=== PATIENT | female | born 1990 | race African-American/Black ===

== ENCOUNTER 2016-08-27 09:29 | Emergency (ER) | payer MEDICAID ==
[2016-08-27 09:35] VITALS: BP 122/77
--- NOTE | 2016-08-27 10:52 | ER Document Report ---
ED General - General Chief Complaint: Breathing Difficulty Stated Complaint: CHEST PAIN Notes: Patient says that she's been experiencing "tight chest pains" in the mid front of her chest since Wednesday night. She says it seems to be primarily at nighttime when she is laying down and going to bed. 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 Does not note any significant swelling of the lower legs are pains and has never had any blood clots in her legs. She's not had a significant cough or cold or chest congestion. Periodically she feels some shortness of breath. Says she is under some stress as she is in the process of moving, but no other stressful factors present. Has not had a fever. LMP 3/13. On no control. On no medications. No surgeries. Nonsmoker. TRAVEL OUTSIDE OF THE [place] IN LAST 30 DAYS: No - Related Data Allergies/Adverse Reactions: seafood Allergy (Uncoded 08/27/16 09:39) Past Medical History - Social History Smoking Status: Never Smoker Chew tobacco use (# tins/day): No Frequency of alcohol use: None Drug Abuse: None Family History: Reviewed & Not Pertinent Patient has suicidal ideation: No Patient has homicidal ideation: No Pulmonary Medical History: Denies: Hx Asthma - Immunizations Hx Diphtheria, Pertussis, Tetanus Vaccination: Yes Review of Systems - Review of Systems Constitutional: denies: Fever Cardiovascular: See HPI, Chest pain Respiratory: Cough - Occasional but no sputum production., Short of breath - At times.. denies: Hemoptysis, Sputum, Wheezing Gastrointestinal: denies: Abdominal pain, Diarrhea, Vomiting Musculoskeletal: denies: Muscle pain, Muscle stiffness, Leg swelling, Ankle swelling Skin: denies: Rash Physical Exam - Vital signs Vitals: Temp Pulse Resp BP Pulse Ox 98.2 F 67 20 122/77 96 08/27/16 09:34 08/27/16 09:34 08/27/16 09:34 08/27/16 09:34 08/27/16 09:34 Interpretation: Normal. No: Tachycardic, Hypoxic, Febrile - Notes Notes: PHYSICAL EXAMINATION: GENERAL: Well-appearing, in no acute distress. Vital signs are all essentially normal. HEAD: Atraumatic, normocephalic. NECK: Normal range of motion, supple. LUNGS: Breath sounds clear and equal bilaterally. No wheezes heard. No rubs present. No chest wall tenderness to press. HEART: Regular rate and rhythm without murmurs. No rubs heard. ABDOMEN: Soft, nontender. No guarding or rebound. BACK: No tenderness throughout entire back. EXTREMITIES: Normal range of motion without pain. Negative Homans bilaterally. NEUROLOGICAL: Normal speech, normal gait. Normal sensory, motor, and reflex exams. Awake, alert, and oriented x3. PSYCH: Anxious. SKIN: Warm, dry, no rashes. Course - Vital Signs Vital signs: Temp Pulse Resp BP Pulse Ox 98.2 F 67 20 122/77 96 08/27/16 09:34 08/27/16 09:34 08/27/16 09:34 08/27/16 09:34 08/27/16 09:34 - Diagnostic Test Radiology results interpreted by ks: 08/27/16 11:57 Chest x-ray is normal. - EKG Interpretation by Ok EKG shows normal: Sinus rhythm Rate: Normal Rhythm: NSR Additional EKG results interpreted by ks: 08/27/16 11:58 EKG is normal. Discharge - Discharge Condition: Stable Disposition: HOME, SELF-CARE Additional Instructions: CHEST PAIN OF UNCLEAR CAUSE: The exact cause of your chest pain isn't clear. Fortunately, there is no evidence of a dangerous medical condition. Further testing may be required to find the source of the pain. Most often, we find that this pain is coming from the chest wall -- the muscles or rib joints in the chest. But chest pain can come from the lung and lung lining, the esophagus, the heart valves or heart lining, and even the stomach or gallbladder. Rest. Eat lightly until the pain is gone. We may prescribe medicine for pain and inflammation. You should call the physician immediately if the pain radiates to the shoulder, jaw or arms; if you start to run a fever or develop a cough; or if you develop shortness of breath, or other new or alarming symptoms. NORMAL EXAM AND WORKUP: At this time, your examination and workup show no significant abnormality. No significant abnormal physical findings were noted. All laboratory, EKG, and imaging (x-ray, CT scans, ultrasound) studies that were ordered show no significant abnormality. Although your examination and all studies that were ordered showed no significant abnormal finding, there are no examinations and no studies that are 100% accurate. There is always the possibility that some abnormality could exist and not be detected with physical examination or within the limits and capabilities of laboratory and other studies. You should return or follow up as you were instructed on your visit today for further evaluation if your symptoms do not resolve. CHEST WALL PAIN: Your chest pain may be coming from the chest wall. This is often caused by straining the muscles or joints in the chest during physical activity, direct trauma, coughing, or vigorous vomiting. Persons with arthritis are especially prone to this type of pain, due to inflammation of the cartilage joints near the breast bone. Occasionally, no cause can be found. Rest from strenuous physical activity. This kind of chest pain is usually made worse by movement of the chest. Depending on the symptoms, we may prescribe medicine for pain, muscle relaxation, and antiinflammatory effects. If the pain is new, and seems to be due to muscle strain, cold packs can help. Otherwise, apply gentle warmth to the painful area for 15 minutes every hour or two. You should call contact the doctor immediately if things change. Further evaluation is needed if you develop a fever or cough, if the nature of the pain changes, or if you become short of breath. Anxiety The physician feels that some of your health problems are being caused by anxiety. Anxiety affects your health in many ways. Anxiety alone can cause palpitations, sweats, chest pains, abdominal pains, shortness of breath, and headaches. It contributes to ulcer disease, high blood pressure, irritable bowel syndrome, and has been shown to cause flare-ups of many other diseases. Anxiety is not a simple disorder to treat. If the anxiety is due to recent life stresses, you may simply need time to "work through" the changes. If the anxiety is due to an underlying unhappiness with yourself or due to psychiatric disturbance, professional help will be needed. Your physician can refer you for further help if needed. Anti-anxiety medication is occasionally given if the stress is acute or if you are having trouble sleeping. Chronic or frequent use of these medications is not a good idea because the body becomes reliant on it, preventing you from dealing with life's normal stresses. USE OF ACETAMINOPHEN (Tylenol): Acetaminophen may be taken for pain relief or fever control. It's much safer than aspirin, offering a wider range of "safe" dosages. It is safe during . Some brand names are Tylenol, Panadol, Datril, Anacin 3, Tempra, and Liquiprin. Acetaminophen can be repeated every four hours. The following are maximum recommended dosages: WEIGHT Dose Drops Elixir Chewable( 80mg) (LBS.) drprs=droppers tsp=teaspoon >89 pounds or adults 650 mg to 900 mg Acetaminophen can be repeated every four hours. Maximum dose not to exceed 4000 mg a day. These maximum recommended dosages are slightly higher than the dosages written on the product container, but these dosages are very safe and below the toxic dosage for acetaminophen. Ibuprofen Ibuprofen is an excellent, safe drug for pain control. In addition, it has potent antiinflammatory effects which are beneficial, especially in the treatment of injuries, arthritis, or tendonitis. It's best to take ibuprofen with food. Persons with ulcer disease or allergy to aspirin should notify their physician of this before taking ibuprofen. Take the medication exactly as prescribed. Don't take additional doses unless instructed to do so by your doctor. If you develop wheezing, shortness of breath, hives, faintness, stomach pain, vomiting, or dark black stools, return for re-evaluation at once. FOLLOW-UP CARE: If you have been referred to a physician for follow-up care, call the physician s office for an appointment as you were instructed or within the next two days. If you experience worsening or a significant change in your symptoms, notify the physician immediately or return to the Emergency Department at any time for re-evaluation. Forms: Return to Work
--- NOTE | 2016-08-27 20:39 | EKG REPORT ---
SEVERITY:- NORMAL ECG - SINUS RHYTHM : Confirmed by: Ubaldo Dailey 27-Aug-2016 20:39:07
== END 2016-08-27 12:11 | disposition home or self-care (01) ==
LOC: ER 09:29
DX: R07.89 Other chest pain (principal); R06.02 Shortness of breath; R05 Cough; Z91.013 Allergy to seafood
CPT/HCPCS: 71020; 93005; 93010; 99285

== ENCOUNTER 2017-09-27 07:21 | Emergency (ER) | payer SELFPAY ==
[2017-09-27 07:27] VITALS: BP 124/77
--- NOTE | 2017-09-27 07:42 | ER Document Report ---
HPI - HPI Patient complains to provider of: Toothache for a week Onset: Last week Pain Level: 5 Context: 27-year-old female complaining of right lower molar dental pain since last week. Is gotten worse and throbs. She has a dental paste inside the cavity. No fever or chills. No gum swelling. Associated Symptoms: None Exacerbated by: Denies Relieved by: Denies - ROS ROS below otherwise negative: Yes Systems Reviewed and Negative: Yes All other systems reviewed and negative - REPRODUCTIVE Reproductive: DENIES: : Past Medical History - General Information source: Patient - Social History Smoking Status: Unknown if Ever Smoked Frequency of alcohol use: None Drug Abuse: None Occupation: [employer] home Lives with: Family Family History: Reviewed & Not Pertinent - Medical History Medical History: Negative Pulmonary Medical History: Denies: Hx Asthma Renal/ Medical History: Denies: Hx Peritoneal Dialysis Surgical Hx: Negative - Immunizations Hx Diphtheria, Pertussis, Tetanus Vaccination: Yes Vertical Provider Document - CONSTITUTIONAL Agree With Documented VS: Yes Exam Limitations: No Limitations General Appearance: No Apparent Distress - INFECTION CONTROL TRAVEL OUTSIDE OF THE [place] IN LAST 30 DAYS: No - HEENT HEENT: Normocephalic Notes: white dental paste in central hole right lower 2nd molar, no abscess - NECK Neck: Supple. negative: Lymphadenopathy-Left, Lymphadenopathy-Right - RESPIRATORY Respiratory: Breath Sounds Normal, No Respiratory Distress - CARDIOVASCULAR Cardiovascular: Regular Rate, Regular Rhythm - NEURO Level of Consciousness: Awake, Alert - DERM Integumentary: No Rash Course - Vital Signs Vital signs: Temp Pulse Resp BP Pulse Ox 98.7 F 79 16 124/77 97 09/27/17 07:25 09/27/17 07:25 09/27/17 07:25 09/27/17 07:25 09/27/17 07:25 Discharge - Discharge Clinical Impression: Dental pain and decay Condition: Good Disposition: HOME, SELF-CARE Instructions: Penicillin V K ([facility]), Toothache ([facility]), Oral Narcotic Medication ( [facility]), Acetaminophen, Ibuprofen (General) ([facility]), Dentist, Dental Infection or Abscess ([facility]) Additional Instructions: see the dentist to er if worsening symptoms Prescriptions: Hydrocodone Bit/Acetaminophen [Hydrocodon-Acetaminophen 5-325] 1 each PO Q4HP PRN #7 tablet PRN Reason: Ibuprofen [Motrin 800 mg Tablet] 800 mg PO Q8HP PRN #30 tablet PRN Reason: Penicillin V Potassium [Penicillin Vk 500 mg Tablet] 500 mg PO QID #40 tablet Forms: Return to Work
== END 2017-09-27 08:23 | disposition home or self-care (01) ==
LOC: ER 07:21
DX: K08.9 Disorder of teeth and supporting structures, unspecified (principal); K02.9 Dental caries, unspecified
CPT/HCPCS: 99282

== ENCOUNTER 2017-12-25 10:05 | Emergency (ER) | payer OTHER ==
[2017-12-25] MEDS ORDERED: DIPHENHYDRAMINE HCL 50 MG/ML VIAL IV ONE (10:42)
[2017-12-25] MEDS ORDERED: METHYLPREDNISOLONE INJ 125 MG/2 ML SDV IV ONE (10:42)
[2017-12-25] MEDS ORDERED: FAMOTIDINE INJ/PF 20 MG/2 ML SDV IV ONE (10:42)
--- NOTE | 2017-12-25 11:20 | ER Document Report ---
HPI - HPI Patient complains to provider of: dental pain, swelling Onset: Other - 3 days Onset/Duration: Persistent Quality of pain: Achy Severity: Severe Pain Level: 4 Context: Patient presents to the emergency department with right-sided facial swelling and pain. She reports that she is being treated by a dentist for dental infection. She just finished her clindamycin a few days ago. She needs to get an appointment to follow-up with an oral surgeon. She reports pain and swelling started 3 days ago to the right side of her face. She denies fever vomiting diarrhea. She reports it is hard to open her mouth all the way because of the pain. Associated Symptoms: None Exacerbated by: Denies Relieved by: Denies Similar symptoms previously: Yes Recently seen / treated by doctor: Yes - CONSTITUTIONAL Constitutional: DENIES: Fever, Chills - EENT EENT: DENIES: Sore Throat, Ear Pain, Eye problems - NEURO Neurology: DENIES: Headache, Weakness, Vision blurred, Dizzinesss / Vertigo - CARDIOVASCULAR Cardiovascular: DENIES: Chest pain - RESPIRATORY Respiratory: DENIES: Trouble Breathing, Coughing - GASTROINTESTINAL Gastrointestinal: DENIES: Abdominal Pain, Black / Bloody Stools - URINARY Urinary: DENIES: Dysuria, Urgency, Frequency - REPRODUCTIVE Reproductive: DENIES: : - MUSCULOSKELETAL Musculoskeletal: DENIES: Extremity pain Past Medical History - General Information source: Patient Last Menstrual Period: 11/28/17 - Social History Smoking Status: Never Smoker Chew tobacco use (# tins/day): No Frequency of alcohol use: None Drug Abuse: None Family History: Reviewed & Not Pertinent Patient has suicidal ideation: No Patient has homicidal ideation: No - Medical History Medical History: Negative Pulmonary Medical History: Denies: Hx Asthma Renal/ Medical History: Denies: Hx Peritoneal Dialysis Surgical Hx: Negative - Immunizations Hx Diphtheria, Pertussis, Tetanus Vaccination: Yes Vertical Provider Document - CONSTITUTIONAL Agree With Documented VS: Yes Exam Limitations: No Limitations General Appearance: WD/WN, No Apparent Distress - INFECTION CONTROL TRAVEL OUTSIDE OF THE [place] IN LAST 30 DAYS: No - HEENT HEENT: Atraumatic, Normocephalic. negative: Conjuctival Injection, Pharyngeal Exudate Mouth Diagram: 1 - c/o pain 2 - pain, submandibular firm swelling, no erythema to floor of mouth, no drooling, no obvious pustule, reports unable to open mouth fully - NECK Neck: Normal Inspection, Supple - RESPIRATORY Respiratory: Breath Sounds Normal, No Respiratory Distress - CARDIOVASCULAR Cardiovascular: Regular Rate - MUSCULOSKELETAL/EXTREMETIES Musculoskeletal/Extremeties: [place], FROM - NEURO Level of Consciousness: Awake, Alert, Appropriate Motor/Sensory: No Motor Deficit - DERM Integumentary: Warm, Dry Course - Re-evaluation Re-evalutation: 12/25/17 11:19 I am concerned about early development of ludwigs consulted Dr. Ramírez who came over and looked at the patient. He agrees CT should be done. Patient reports she is allergic to shrimp shellfish. Contacted Dr. Wadsworth radiologist he recommended to premedicate. 12/25/17 12:09 CT results still not read. Contacted the [employer] who reports he has pushed the image through. I attempted to contact the radiologist the phone rang and then hung up without answering. Will attempt again 12/25/17 12:35 CT resulted patient instructed on negative abscess. Will continue on clindamycin. Patient was instructed on the importance of follow-up with her dentist on Wednesday. She verbalized understanding tall instructions. - Vital Signs Vital signs: Temp Pulse Resp BP Pulse Ox 99.0 F 78 16 129/91 H 96 12/25/17 10:12 12/25/17 10:12 12/25/17 10:12 12/25/17 10:12 12/25/17 10:12 - Diagnostic Test Radiology reviewed: Image reviewed, Reports reviewed - Diagnostic report text EXAM DESCRIPTION: CT SOFT TISSUE NECK WITH COMPLETED DATE/TIME: 12/25/2017 11: 37 am REASON FOR STUDY: ?Abscess COMPARISON: None. TECHNIQUE: Post IV contrasted scanning from skull base through lung apices with review of bone, soft tissue and lung windows. Reconstructed coronal and sagittal MPR images reviewed. All images stored on PACS. All CT scanners at this facility use dose modulation, iterative reconstruction, and/or weight based dosing when appropriate to reduce radiation dose to as low as reasonably achievable (ALARA) . [facility]: Dose Right [facility]: CareDose [facility]: Dose Right [facility]: Teradose 4D [facility]: [place] CONTRAST TYPE AND DOSE: contrast/concentration: Isovue 370.00 mg/ ml; Total Contrast Delivered: 75.0 ml; Total Saline Delivered: 55.0 ml RENAL FUNCTION: None required. The patient is less than 50 years old. RADIATION DOSE : CT Rad equipment meets quality standard of care and radiation dose reduction techniques were employed. CTDIvol: 16.6 mGy. DLP: 435 mGy-cm. . LIMITATIONS: Limited clinical information. FINDINGS: SKULL BASE: Intact. MAJOR SALIVARY GLANDS: Symmetric appearance of the bilateral parotid glands without calcifications or mass. Right submandibular gland is slightly larger than the left but without calcifications or mass. There is subcutaneous stranding along the right jawline without drainable abscess. There is minimal focal thickening along the scan close to this area. LYMPHADENOPATHY: Bilateral relatively symmetric anterior neck nodes, generally subcentimeter. No specific abnormal nodes. MUCOSAL MASSES OR ASYMMETRY: Mild tonsillar hypertrophy. No peritonsillar abscess or airway compromise suggested. LARYNX/CORDS: No abnormal findings. VASCULAR STRUCTURES: The major vessels are patent. LUNG APICES: Clear. BONES: Intact. THYROID: Normal size. No masses. PARANASAL SINUSES: No fluid levels. Mild polypoid right maxillary mucosal thickening. OTHER: No other significant finding. IMPRESSION: Soft tissue edema over the right aspect of the jaw. Suggestive of cellulitis. No drainable abscess Discharge - Discharge Clinical Impression: dental pain Condition: Stable Disposition: HOME, SELF-CARE Instructions: Clindamycin ([facility]), Toothache ([facility]) Additional Instructions: *You have been evaluated for dental pain and swelling *Take medications as prescribed *Follow up with dentist Wednesday *Return to ED for worsening condition, changes, needs Prescriptions: Clindamycin HCl [Cleocin 300 mg Capsule] 300 mg PO TID #15 capsule Forms: Return to Work Referrals: ANGELY CANNON MD [Primary Care Provider] - Follow up as needed
--- NOTE | 2017-12-25 12:21 | RADIOLOGY REPORT (SQ) ---
EXAM DESCRIPTION: CT SOFT TISSUE NECK WITH COMPLETED DATE/TIME: 12/25/2017 11:37 am REASON FOR STUDY: ?Abscess COMPARISON: None. TECHNIQUE: Post IV contrasted scanning from skull base through lung apices with review of bone, soft tissue and lung windows. Reconstructed coronal and sagittal MPR images reviewed. All images stored on PACS. All CT scanners at this facility use dose modulation, iterative reconstruction, and/or weight based d osing when appropriate to reduce radiation dose to as low as reasonably achievable (ALARA). [facility]: Dose Right [facility]: CareDose [facility]: Dose Right [facility]: Teradose 4D [facility]: [employer]ed[employer] CONTRAST TYPE AND DOSE: contrast/concentration: Isovue 370.00 mg/ml; Total Contrast Delivered: 75.0 ml; Total Saline Delivered: 55.0 ml RENAL FUNCTION: None required. The patient is less than 50 years old. RADIATION DOSE: CT Rad equipment meets quality standard of care and radiation dose reduction techniq ues were employed. CTDIvol: 16.6 mGy. DLP: 435 mGy-cm. . LIMITATIONS: Limited clinical information. FINDINGS: SKULL BASE: Intact. MAJOR SALIVARY GLANDS: Symmetric appearance of the bilateral parotid glands without calcifications or mass. Right submandibular gland is slightly larger than the left but without calcifications or mass . There is subcutaneous stranding along the right jawline without drainable abscess. There is minim al focal thickening along the scan close to this area. LYMPHADENOPATHY: Bilateral relatively symmetric anterior neck nodes, generally subcentimeter. No spe cific abnormal nodes. MUCOSAL MASSES OR ASYMMETRY: Mild tonsillar hypertrophy. No peritonsillar abscess or airway compromi se suggested. LARYNX/CORDS: No abnormal findings. VASCULAR STRUCTURES: The major vessels are patent. LUNG APICES: Clear. BONES: Intact. THYROID: Normal size. No masses. PARANASAL SINUSES: No fluid levels. Mild polypoid right maxillary mucosal thickening. OTHER: No other significant finding. IMPRESSION: Soft tissue edema over the right aspect of the jaw. Suggestive of cellulitis. No drain able abscess. TECHNICAL DOCUMENTATION: JOB ID: [id number] Quality ID # [id number]: Final reports with documentation of one or more dose reduction techniques (e.g., Au tomated exposure control, adjustment of the mA and/or kV according to patient size, use of iterative reconstruction technique) 2010 Dr [employer]- All Rights Reserved Reading location - IP[facility]workstation name: [email or web address]
[2017-12-25 12:41] VITALS: BP 133/96
== END 2017-12-25 12:40 | disposition home or self-care (01) ==
LOC: ER 10:05
DX: K08.89 Other specified disorders of teeth and supporting structures (principal); R51 Headache; R22.0 Localized swelling, mass and lump, head; Z91.013 Allergy to seafood
CPT/HCPCS: 99283; 96374; 96375; 70491; J1200; J2930; S0028

== ENCOUNTER 2018-01-13 12:11 | Emergency (ER) | payer OTHER ==
[2018-01-13 12:26] VITALS: BP 125/79
--- NOTE | 2018-01-13 12:48 | ER Document Report ---
HPI - HPI Patient complains to provider of: Dental pain Pain Level: 3 Context: Patient is a 27-year-old female presenting with dental pain and infection to tooth #32. Patient has known tooth infection. I scheduled seen oral surgeon for extraction next week. Reports eating last night and felt pain in that tooth. Noted swelling to right jaw today. No fever no difficulty talking or swallowing Associated Symptoms: None Exacerbated by: Denies Similar symptoms previously: Yes Recently seen / treated by doctor: Yes - ROS Systems Reviewed and Negative: Yes All other systems reviewed and negative - REPRODUCTIVE Reproductive: DENIES: : Past Medical History - General Information source: Patient - Social History Smoking Status: Never Smoker Frequency of alcohol use: None Drug Abuse: None Lives with: Family Family History: Reviewed & Not Pertinent - Medical History Medical History: Negative Pulmonary Medical History: Denies: Hx Asthma Renal/ Medical History: Denies: Hx Peritoneal Dialysis - Immunizations Hx Diphtheria, Pertussis, Tetanus Vaccination: Yes Vertical Provider Document - INFECTION CONTROL TRAVEL OUTSIDE OF THE [place] IN LAST 30 DAYS: No - HEENT HEENT: Atraumatic, PERRLA Mouth Diagram: 1 - pain 2 - swelling - NECK Neck: Normal Inspection - RESPIRATORY Respiratory: Breath Sounds Normal, No Respiratory Distress - CARDIOVASCULAR Cardiovascular: Regular Rate, Regular Rhythm - MUSCULOSKELETAL/EXTREMETIES Musculoskeletal/Extremeties: MAEW, FROM, Non-Tender - NEURO Level of Consciousness: Awake, Alert, Appropriate Course - Re-evaluation Re-evalutation: 01/13/18 12:48 History and physical are consistent with uncomplicated dental infection. No trismus. No fever. No airway compromise. No Negrito's angina or peritonsillar abscess. Patient has already notified her oral surgeon of her present condition and oral surgeon recommended her come to the ER for prescription of clindamycin. She has an appointment scheduled next week with oral surgeon. Patient is stable for discharge - Vital Signs Vital signs: Temp Pulse Resp BP Pulse Ox 98.4 F 90 16 125/79 98 01/13/18 12:24 01/13/18 12:24 01/13/18 12:24 01/13/18 12:24 01/13/18 12:24 Discharge - Discharge Clinical Impression: Pain, dental Condition: Stable Disposition: HOME, SELF-CARE Instructions: Clindamycin ([facility]), Toothache ([facility]) Additional Instructions: Take antibiotic as prescribed Follow-up with dental as scheduled Prescriptions: Clindamycin HCl 300 mg PO QID #40 capsule Referrals: ANGELY CANNON MD [Primary Care Provider] - Follow up as needed
== END 2018-01-13 12:50 | disposition home or self-care (01) ==
LOC: ER 12:11
DX: K08.9 Disorder of teeth and supporting structures, unspecified (principal)
CPT/HCPCS: 99282

== ENCOUNTER 2018-11-03 08:26 | Emergency (ER) | payer OTHER ==
[2018-11-03 08:53] LABS: APPEARANCE,URINE CLOUDY; BILIRUBIN,URINE NEGATIVE (NEGATIVE); COLOR,URINE YELLOW; GLUCOSE, URINE NEGATIVE (NEGATIVE); KETONES,URINE NEGATIVE (NEGATIVE); LEUKOCYTE ESTERASE,URINE LARGE (NEGATIVE); NITRITE,URINE POSITIVE (NEGATIVE); PROTEIN,URINE NEGATIVE (NEGATIVE); URINE SPECIFIC GRAVITY 1.019; UROBILINOGEN,URINE NEGATIVE mg/dL (<2.0)
--- NOTE | 2018-11-03 09:26 | ER Document Report ---
Entered by ZACHERY SKELTON SCRIBE 11/03/18 0907 Acting as scribe for:BLU MCCARTY MD ED General - General Chief Complaint: Pelvic Pain Stated Complaint: PELVIC PAIN Time Seen by Provider: 11/03/18 08:57 Mode of Arrival: Ambulatory Information source: Patient Notes: Patient is a 28 year old female presenting to the emergency department complaining of pelvic pain onset 3 days ago. Patient states she has a tingling sensation after she finishes urinating and some irritation with walking. She states she believes she has an UTI. She denies any vaginal itching or discharge. Patient's LMP was on 10/27/18. TRAVEL OUTSIDE OF THE [place] IN LAST 30 DAYS: No - Related Data Allergies/Adverse Reactions: seafood Allergy (Uncoded 11/03/18 08:27) Past Medical History - General Information source: Patient - Social History Smoking Status: Never Smoker Cigarette use (# per day): No Chew tobacco use (# tins/day): No Smoking Education Provided: No Frequency of alcohol use: None Drug Abuse: None Family History: Reviewed & Not Pertinent Patient has suicidal ideation: No Patient has homicidal ideation: No - Immunizations Hx Diphtheria, Pertussis, Tetanus Vaccination: Yes Review of Systems - Review of Systems Constitutional: No symptoms reported EENT: No symptoms reported Cardiovascular: No symptoms reported Respiratory: No symptoms reported Gastrointestinal: No symptoms reported Genitourinary: See HPI Female Genitourinary: See HPI Musculoskeletal: No symptoms reported Skin: No symptoms reported Hematologic/Lymphatic: No symptoms reported Neurological/Psychological: No symptoms reported -: Yes All other systems reviewed and negative Physical Exam - Vital signs Vitals: Temp Pulse Resp BP Pulse Ox 98.5 F 81 16 128/85 H 96 11/03/18 08:29 11/03/18 08:29 11/03/18 08:29 11/03/18 08:29 11/03/18 08:29 - Notes Notes: GENERAL: Alert, interacts well. No acute distress. HEAD: Normocephalic, atraumatic. EYES: Pupils equal, round, and reactive to light. Extraocular movements intact. ENT: Oral mucosa moist, tongue midline. NECK: Full range of motion. Supple. Trachea midline. LUNGS: Clear to auscultation bilaterally, no wheezes, rales, or rhonchi. No respiratory distress. HEART: Regular rate and rhythm. No murmurs, gallops, or rubs. ABDOMEN: Soft, non-tender. Non-distended. Bowel sounds present in all 4 quadrants. No guarding, rigidity, or rebound. : Pelvic exam shows no abnormality of the labial vulvar region. There is a whitish-yellow bubbly discharge. There are no erosions blisters or other lesions noted. Cervical motion tenderness is noted. Uterus and adnexae are tender. EXTREMITIES: Moves all 4 extremities spontaneously. NEUROLOGICAL: Alert and oriented x3. Normal speech. PSYCH: Normal affect, normal mood. SKIN: Warm, dry, normal turgor. No rashes or lesions noted. Course - Vital Signs Vital signs: Temp Pulse Resp BP Pulse Ox 98.5 F 81 16 128/85 H 96 11/03/18 08:29 11/03/18 08:29 11/03/18 08:29 11/03/18 08:29 11/03/18 08:29 - Laboratory Laboratory results interpreted by me: 11/03/18 08:35 Urine Nitrite POSITIVE H Ur Leukocyte Esterase LARGE H Discharge - Discharge Clinical Impression: PID (acute pelvic inflammatory disease), Trichomonas vaginitis Condition: Stable Disposition: HOME, SELF-CARE Additional Instructions: Pelvic Inflammatory Disease You have been diagnosed as having pelvic inflammatory disease (PID). This is an infection of the fallopian tubes and surrounding areas of the pelvis. Symptoms are usually pelvic pain and discharge. The infection can do permanent damage to the tubes and ovaries. It should be taken very seriously. Treatment is antibiotics, which may be given by vein or by injection if the infection seems serious. It's important that you receive all recommended medication. Condoms help prevent spread of this infection to others. Because this infection is spread sexually, it's important that your sexual partner be checked before resuming sexual relations. If a culture shows gonorrhea or chlamydia organisms, the law requires that this be reported to the health department. Call the doctor or return at once if you develop increasing fever, rash, severe pelvic pain, vaginal bleeding (other than your period), or problems with your bladder or bowels. Trichomonas Infection Trichomoniasis is infection of the vagina or male genital tract with Trichomonas vaginalis. It can be asymptomatic or cause urethritis, vaginitis, or occasionally cystitis, epididymitis, or prostatitis. Diagnosis is by microscopic examination of vaginal or prostatic secretions or by urethral culture. Patients and sex partners are treated with metronidazole. T. vaginalis is a flagellated, sexually transmitted protozoan that more often infects women (about 20% of women of reproductive age) than men. Infection may be asymptomatic in either sex, but asymptomatic is the rule for men. In men, protozoa may persist for long periods in the tract without causing symptoms; thus, protozoa may be transmitted unwittingly to sex partners. Trichomoniasis may account for up to 5% of nongonococcal, nonchlamydial urethritis in men in some areas. Co-infection with gonorrhea and other sexually transmitted diseases (STDs) is common. In women, symptoms range from none to copious, yellow-green, frothy vaginal discharge with soreness of the vulva and perineum, dyspareunia, and dysuria. Asymptomatic infection may become symptomatic at any time as the vulva and perineum become inflamed and edema develops in the labia. The vaginal jacobo and surface of the cervix may have punctate, red "strawberry" spots. Urethritis and possibly cystitis may also occur. Men are usually asymptomatic; however, sometimes urethritis results in a discharge that may be transient, frothy, or purulent or that causes dysuria and frequency, usually early in the morning. Often, urethritis is mild and causes only minimal urethral irritation and occasional moisture at the urethral meatus, under the foreskin, or both. Epididymitis and prostatitis are rare complications. Trichomoniasis is suspected in women with vaginitis, in men with urethritis, and in their sex partners. Suspicion is high if symptoms persist after patients have been evaluated and treated for other infections such as gonorrhea and chlamydial, mycoplasmal, and ureaplasmal infections. In women, diagnosis is based on clinical criteria and in-office testing. The saline wet mount is examined microscopically as soon as possible to detect trichomonads.In men, microscopy of urine is insensitive, although occasionally organisms are visible in a first-voided morning specimen or a centrifuged specimen. Cultures of urine and urethral swabs are more sensitive. As with diagnosis of any STD, patients with trichomoniasis should be tested to exclude other common STDs such as gonorrhea and chlamydial infection. Metronidazole or tinidazole 2 g po in a single dose cures up to 95% of women if sex partners are treated simultaneously. Effectiveness of single-dose regimens in men is not as clear, so treatment is typically with metronidazole or tinidazole 500 mg bid for 5 to 7 days. Sex partners should be screened and treated for trichomoniasis and other STDs. If poor adherence to follow-up is likely, treatment can be initiated in sex partners of patients with documented trichomoniasis without confirming the diagnosis in the partner. Take medications as prescribed. Drink plenty of fluids over the next several days. Take ibuprofen or Aleve for pelvic pain. Have your sexual partner tested and treated at the health department or with his primary care provider. Follow-up with your primary care provider or [facility] if not improving. RETURN TO THE EMERGENCY ROOM IF ANY NEW OR WORSENING SYMPTOMS. Prescriptions: Doxycycline Hyclate 100 mg PO BID #14 tablet. Metronidazole [Flagyl 500 mg Tablet] 500 mg PO TID #21 tablet Forms: Return to Work Referrals: [facility] [Provider Group] - Follow up as needed Scribe Attestation: 11/03/18 10:38 I personally performed the services described in the documentation, reviewed and edited the documentation which was dictated to the scribe in my presence, and it accurately records my words and actions. I personally performed the services described in the documentation, reviewed and edited the documentation which was dictated to the scribe in my presence, and it accurately records my words and actions.
[2018-11-03 09:58] LABS: T.VAGINALIS (WET MOUNT) TRICHOMONAS SEEN; WBCS (WET MOUNT) FEW WBCS SEEN; YEAST (WET MOUNT) NO YEAST SEEN
[2018-11-03] MEDS ORDERED: CEFTRIAXONE INJ 1000 MG VIAL IM ONE (10:31)
[2018-11-03] MEDS ORDERED: LIDOCAINE 1% INJ-PF (10 MG/ML) 30 ML SDV IM ONE (10:31)
[2018-11-03] MEDS ORDERED: METRONIDAZOLE 500 MG TABLET PO ONE (10:32)
[2018-11-03] MEDS ORDERED: DOXYCYCLINE HYCLATE 100 MG TABLET PO ONE (10:32)
[2018-11-03 11:08] VITALS: BP 122/76
[2018-11-03 11:27] LABS: CHLAM PCR NOT DETECTED (NOT DETECT); GON PCR NOT DETECTED (NOT DETECT)
== END 2018-11-03 11:07 | disposition home or self-care (01) ==
LOC: ER 08:26
DX: N73.0 Acute parametritis and pelvic cellulitis (principal); A59.01 Trichomonal vulvovaginitis; R10.2 Pelvic and perineal pain; Z91.013 Allergy to seafood
CPT/HCPCS: 99284; 96372; 87210; 81025; 81001; 87491; 87591; J3490; J0696